=== PATIENT | male | born 1950 | race Two or more races ===

== ENCOUNTER 2024-03-18 19:13 | Emergency (ER) | payer MEDICARE, MEDICAID ==
[~2024-03-18] VITALS: Ht 165.1 cm; Wt 70.3 kg
[2024-03-18] MEDS ORDERED: ACYC1TAB3 PO (23:50)
[2024-03-19] MEDS: KETOROLAC TROMETH 30 MG/ML 1ML VIAL IM ONE (00:02)
[2024-03-19 00:03] VITALS: BP 109/74; PULSE 72; RESP 16; TEMP 98.4; O2SAT 97
== END 2024-03-19 00:10 | disposition home or self-care (01) ==
LOC: ER 19:13
DX: B02.9 Zoster without complications (principal); E78.5 Hyperlipidemia, unspecified
CPT/HCPCS: 96372; 99283; J1885